=== PATIENT | male | born 1975 | race Hispanic/Latino ===

== ENCOUNTER 2020-04-30 22:46 | Observation (INO) | payer SELFPAY ==
[2020-05-01] MEDS ORDERED: Ondansetron ODT 4 MG TAB SL PRN (00:28)
[2020-05-01] MEDS ORDERED: Ondansetron PF 4 MG/2 ML Vial IVP PRN (00:28)
[2020-05-01] MEDS ORDERED: Morphine 2 MG/ML VIAL SLOW IVP PRN (00:29)
[2020-05-01 00:31] VITALS: BMI 29.0
[2020-05-01] MEDS: Sodium Chloride 0.9% 1,000 ML IV SCH ×2 (05:24→08:18)
[2020-05-01] MEDS ORDERED: Piperacillin/Tazobactam 4.5 GM in Sodium Chloride 0.9% 100 ML IVPB SCH (06:00)
--- NOTE | 2020-05-01 08:53 | PDOC.GSCN ---
Surgery Consult: HPI - Consult details Date: 05/01/20 Time: 08:51 Reason for consult: abdominal pain History of present illness: 05/01/20 08:51 44yo male with one day history of abdominal pain. Pain is described as sharp. It began in he mid abdomen and migrated to the right lower quadrant. Denies nausea or vomiting. Denies fevers. Presented to [facility] and was transferred to [facility] for surgical management. Surgery Consult: ROS - Review of Systems All systems: 10 systems reviewed and no additional complaints unless stated below. Surgery Consult: PMH Past Medical History: denies Past Surgical History: denies - Past Family History Pertinent family history: denies - Past Social History Smoking Status: Never smoker Alcohol Use: occasional Drug Use History: none Living Situation: independent Surgery Consult: Exam - Vital signs Vital signs: Vital Signs - Most Recent Temp Pulse Resp BP Pulse Ox 98.6 F 91 16 119/69 96 05/01/20 05:19 05/01/20 05:19 05/01/20 05:19 05/01/20 05:19 05/01/20 05:19 - Physical Exam General: no distress, well developed, well nourished Eye: normal ocular movement, PERRL ENT: no congestion, normal mucosa, normal nares Neck: no masses, trachea midline Respiratory: clear to auscultation, normal expansion, normal respiratory effort Abdomen: soft, tender Integumentary: no abnormal pigmentation, no growths, no rash Neurologic: normal coordination, normal sensation Musculoskeletal: normal gait, normal posture Psychiatric: memory intact, oriented to time, oriented to person, oriented to place Surgery Consult: Meds - Medications Medications: Current Medications Sodium Chloride (Normal Saline 0.9%) 1,000 mls @ 150 mls/hr IV .Q6H40M DOROTHY Stop: 05/01/20 11:30 Last Admin: 05/01/20 08:18 Dose: Not Given Piperacillin Sod/Tazobactam (Sod 4.5 gm/ Sodium Chloride) 100 mls @ 200 mls/hr IVPB Q8HR DOROTHY Stop: 05/01/20 11:30 Last Admin: 05/01/20 05:25 Dose: 100 mls Morphine Sulfate (Morphine) 4 mg SLOW IVP Q4H PRN PRN Reason: Pain Stop: 05/01/20 11:30 Ondansetron HCl (Zofran) 4 mg IVP Q6H PRN PRN Reason: Nausea/Vomiting Stop: 05/01/20 11:30 Ondansetron HCl (Zofran Odt) 4 mg SL Q6H PRN PRN Reason: Nausea/Vomiting Stop: 05/01/20 11:30 Sodium Chloride (Flush - Normal Saline) 10 ml IVF PRN PRN PRN Reason: Saline Flush Stop: 05/01/20 11:30 - Allergies Allergies/Adverse Reactions: Allergies Allergy/AdvReac Type Severity Reaction Status Date / Time No Known Drug Allergies Allergy Verified 05/01/20 00:38 Surgery Consult: Results - Radiology Interpretation CT scan - abdomen Additional comments: from [facility]. Consistent with acute appendicitis Surgery Consult: A/P - Problem (1) Acute appendicitis Current Visit: Yes Code(s): K35.80 - UNSPECIFIED ACUTE APPENDICITIS Status: Acute - Plan Plan: Plan for laparoscopic appendectomy this morning. The relative risks and benefits have been discussed in detail; specifically the risks of abscess formation and damage to adjacent structures. Informed consent obtained. Plan for discharge home later today if discharge criteria met.
[2020-05-01] MEDS ORDERED: Ondansetron PF 4 MG/2 ML Vial ONE (10:08)
[2020-05-01] MEDS ORDERED: PROPOFOL 200 MG/20 ML VIAL ONE (10:08)
[2020-05-01] MEDS ORDERED: Glycopyrrolate 0.2 MG/ML 5 ML SYRINGE ONE (10:08)
[2020-05-01] MEDS ORDERED: Rocuronium Bromide 10 MG/ML (10ML VIAL) ONE (10:08)
[2020-05-01] MEDS ORDERED: Succinylcholine Chloride 20 MG/ML 10 ml SYRINGE FS ONE (10:08)
[2020-05-01] MEDS ORDERED: Dexamethasone 20 MG/5 ML VIAL ONE (10:08)
[2020-05-01] MEDS ORDERED: Lidocaine 1% PF 5 ML VIAL ONE (10:08)
[2020-05-01] MEDS ORDERED: Fentanyl 100 MCG/2 ML VIAL ONE ×2 (10:14→11:48)
[2020-05-01] MEDS ORDERED: Midazolam HCl 2 mg/2 ml Vial ONE (10:14)
[2020-05-01] MEDS ORDERED: Bupivacaine/Epinephrine 0.25% 30 ML VIAL ONE (10:16)
[2020-05-01] MEDS ORDERED: Promethazine HCl 25 MG/ML VIAL IM PRN (10:18)
[2020-05-01] MEDS ORDERED: Promethazine HCl 25 MG/ML VIAL SLOW IVP PRN (10:18)
[2020-05-01] MEDS ORDERED: Ondansetron HCl/PF 4 MG/2 ML Vial IVP PRN (10:18)
--- NOTE | 2020-05-01 12:16 | PDOC.OP ---
Operative Note - Operative Note Operative Note: DATE OF SURGERY: May 01, 2020 SURGEON: Brad Bartholomew MD PREOPERATIVE DIAGNOSIS: Acute appendicitis without abscess POSTOPERATIVE DIAGNOSIS: Acute appendicitis without abscess PROCEDURE: Laparoscopic appendectomy INDICATIONS: 44-year-old male with a 1 day history of abdominal pain associated with no other associated symptoms. Their work-up was consistent with acute appendicitis. The relative risks and benefits of laparoscopic appendectomy were discussed in detail with the patient, specifically addressing the risk of abscess formation, staple line leak, and damage to adjacent structures. Informed consent was obtained. PROCEDURE IN DETAIL: The patient was brought to the operating room and positioned supine on the operating room table. After induction of general, endotracheal anesthesia, the patient was prepared and draped in the usual fashion. Prior to beginning the procedure, a complete timeout was performed with all members of the operative team being present and in agreement. Access to the abdomen was obtained in the left upper quadrant using an optical trocar under direct visualization. The abdomen was insufflated, and additional trochars placed under direct visualization. The abdominal cavity was examined and inflammation was noted in the right lower quadrant. The appendix was located and surrounding adhesions divided to allow medial mobilization and retraction toward the abdominal wall. A window was created between the base of the appendix and the mesoappendix using blunt dissection and minimal electrocautery. The base of the appendix was identified by the confluence of the tinea. The appendix was divided using a single fire of a blue staple load. The mesoappendix was fired using a single white staple load. The specimen was placed in a retrieval bag and the abdominal cavity examined with hemostasis achieved. The bag was removed from the abdominal cavity, and the specimen passed off for pathological examination. The 12 mm trocar site fascia was closed using a 0-Vicryl tie utilizing a suture passer. The skin was closed with 4-0 Monocryl suture and dressed with skin adhesive dressing. At the conclusion of the case, all sponge and instrument counts were correct. ESTIMATED BLOOD LOSS: Minimal COMPLICATIONS: None INTRAOPERATIVE BLOOD TRANSFUSIONS: None GRAFTS / IMPLANTS: None SPECIMENS: Appendix DISPOSITION: The patient was transported to the postoperative recovery unit in good condition , to be turned to the floor when criteria are met.
--- NOTE | 2020-05-01 12:23 | PDOC.BPN ---
- Brief Progress Note DATE OF ADMISSION: April 30, 2020 DATE OF DISCHARGE: May 01, 2020 ADMISSION DIAGNOSES: Acute appendicitis DISCHARGE DIAGNOSES: Acute appendicitis PROCEDURES: Laparoscopic appendectomy HOSPITAL COURSE: 44-year-old male presented with acute appendicitis. He was taken for laparoscopic appendectomy the following morning. He tolerated the procedure well and was returned to the floor. While on the floor, he was able to tolerate a regular diet, ambulate independently, void spontaneously, and his pain was well-controlled with oral analgesia. He was appropriate for discharge home. DISCHARGE MEDICATIONS: see Discharge Medication Reconciliation Tylenol 3 EXAMINATION: General: alert and oreinted, no acute distress, resting comfortably Cardiovascular: regular rate and rhythm Pulmonary: normal respirations, good tidal volume Abdomen: soft, non-tender, non-distended, incisions clean and intact Extremities: no edema, palpable pulses 1. Advance diet as tolerated. 2. Advance activity as tolerated. Avoid heavy lifting and straining until after postoperative clinic evaluation. Ambulate daily. 3. Take medications as instructed. 4. Follow-up 1-2 weeks. Contact surgery clinic for appointment. 5. Do not remove Dermabond. Wash normally. It will come off on its own. 6. Consider [id number] stool softener or laxative while taking narcotic pain medication. 7. Contact the surgery clinic ([phone]) or report to the emergency department for persistent fevers, increasing pain, persistent nausea or vomiting ,
[2020-05-01 12:25] LABS: SARS-CoV-2 MS2 Positive; SARS-CoV-2 N Gene Negative; SARS-CoV-2 S Gene Negative; SARS-CoV-2 by NAA Not Detected (NotDetected); SARS-CoV-2 orf1ab Negative
[2020-05-01 12:51] VITALS: TEMP 98.6
[2020-05-01 17:28] VITALS: BP 106/63
== END 2020-05-01 16:45 | disposition home or self-care (01) ==
LOC: ERS 22:46 → 3SW 23:30
PROVIDERS: ADMIT Surgery; ATTEND Surgery
PROC: 0DTJ4ZZ Resection of Appendix, Percutaneous Endoscopic Approach (ICD-10-PCS; principal; 2020-05-01)
DX: K35.30 Acute appendicitis with localized peritonitis, without perforation or gangrene (principal)
CPT/HCPCS: 87635; 88304; 96360; 96361; 99284; G0378; J1100; J2250; J2405; J2543; J2704; J3010; J3490; U0003

== ENCOUNTER 2021-10-02 18:26 | Emergency (ER) | payer SELFPAY | END 2021-10-02 20:42 | disposition home or self-care (01) | LOC: ERS 18:26 | DX: M25.531 Pain in right wrist (principal) | CPT/HCPCS: 99283 ==